=== PATIENT | female | born 2000 | race African-American/Black ===

== ENCOUNTER 2020-06-13 10:08 | Emergency (ER) | payer MEDICAID ==
[~2020-06-13] VITALS: Ht 165.1 cm; Wt 64.0 kg
[2020-06-13] MEDS ORDERED: AZITHROMYCIN 500 MG TABLET PO ONE (11:15)
[2020-06-13] MEDS ORDERED: CEFTRIAXONE SODIUM 250 MG/VIAL IM ONE (11:15)
[2020-06-13] MEDS ORDERED: ACETAMINOPHEN 325MG TABLET PO STA (11:23)
[2020-06-13 11:26] LABS: HEMATOCRIT. 40.1 % (36.0-48.0); HEMOGLOBIN. 13.6 g/dL (12.0-16.0); MEAN CORPUSCULAR HEMOGLOBIN 30.2 pg (28.0-32.0); MEAN PLATELET VOLUME 7.1 fl (7.4-10.4); PLATELET 321 x1000/uL (130-400); RED CELL DISTRIBUTION WIDTH 13.1 % (11.6-14.6)
[2020-06-13] MEDS ORDERED: LIDOCAINE HCL 1% 20ML VIAL (Pyxis) INJ INFIL ONE (11:30)
[2020-06-13 11:49] LABS: CHLORIDE 108 mEq/L (98-107)
[2020-06-13 12:04] LABS: HCG SCREEN NEGATIVE
[2020-06-13 13:26] LABS: CLARITY URINE CLEAR (CLEAR); COLOR URINE YELLOW (YELLOW); KETONES URINE TRACE (NEGATIVE); LEUKOCYTE ESTERASE URINE 2+ (NEGATIVE); NITRITE URINE NEGATIVE (NEGATIVE); OCCULT BLOOD URINE NEGATIVE (NEGATIVE); PH URINE 6.5 (4.5-8.0); PROTEIN URINE NEGATIVE (NEGATIVE); SPECIFIC GRAVITY URINE 1.024 (1.005-1.030)
[2020-06-13 13:51] LABS: PLATELET ESTIMATE NORMAL
[2020-06-13 14:42] VITALS: BP 116/65
[2020-06-16 04:07] LABS: NEISSERIA GONORRHOEAE NAA Negative (Negative)
== END 2020-06-13 14:43 | disposition home or self-care (01) ==
LOC: ER 10:08
DX: N72 Inflammatory disease of cervix uteri (principal); N39.0 Urinary tract infection, site not specified
CPT/HCPCS: 36415; 76830; 76856; 80053; 81003; 81025; 84703; 85025; 87210; 87491; 87591; 93005; 96372; 99285; J0696; J3490

== ENCOUNTER 2020-06-19 05:53 | Emergency (ER) | payer MEDICAID ==
[~2020-06-19] VITALS: Ht 165.1 cm; Wt 66.0 kg
[2020-06-19] MEDS ORDERED: MAGNESIUM CITRATE 300ML SOLUTION PO ONE (06:45)
[2020-06-19 07:45] VITALS: BP 135/93
== END 2020-06-19 08:30 | disposition home or self-care (01) ==
LOC: ER 05:53
DX: K59.00 Constipation, unspecified (principal); K64.9 Unspecified hemorrhoids; F12.10 Cannabis abuse, uncomplicated; Z87.440 Personal history of urinary (tract) infections
CPT/HCPCS: 93005; 99283